=== PATIENT | female | born 1985 | race Caucasian/White ===

== ENCOUNTER 2023-05-15 14:59 | Observation (INO) | payer BC, SELFPAY ==
[2023-05-15] VITALS (14 sets, daily range): BP systolic 121–162; BP diastolic 66–97; PULSE 76–102; RESP 15–21; TEMP 36.2–36.7; O2SAT 94–98; BMI 52.4
--- NOTE | ~2023-05-15 | CT_ITS ---
EXAMINATION: CT abdomen pelvis w con DATE: 05/15/2023 16:33 INDICATION: Lower abdominal pain, nausea, vomiting and fever. TECHNIQUE: Computed tomography (CT) of the abdomen and pelvis was performed with 100 mL Omnipaque-350 intravenous contrast. Automated exposure control and iterative reconstruction technique were employe d. The dose-length product was 1683.27 mGy-cm. COMPARISON: None FINDINGS: Lung bases are clear. Heart size is normal. No pericardial or pleural effusion. Mild diffuse hepatic steatosis. Gallbladder, spleen, pancreas, bilateral kidneys and right adrenal gland are normal. 2.3 c m macroscopic fat attenuation left adrenal adenoma. Bowels including the appendix are normal. Bladder , anteverted uterus and bilateral adnexa are unremarkable. No pathologically enlarged abdominal or pe lvic lymphadenopathy. No free intraperitoneal gas or fluid. Mild lumbar dextrocurvature with mild spo ndylosis. IMPRESSION: 1. No acute intra-abdominal/pelvic process. Specifically normal appendix. 2. 2.3 cm left adrenal myelolipoma. Reviewed, dictated and finalized at location A.
--- NOTE | 2023-05-15 15:31 | ED.GENADULT ---
HPI - General Adult General Chief complaint: Unspecified Stated complaint: mutiple complaints Time Seen by Provider: 05/15/23 15:16 Source: patient Mode of arrival: ambulatory Limitations: no limitations History of Present Illness HPI narrative: Patient is a 38 y/o female, with PMH of insulin dependent Type 2 DM, who presents to the ED with c/o N/V and lower abdominal pain. Patient reports having ongoing nausea and vomiting since last Wednesday, 1 week ago. She was seen at [facility] at that time and had a negative work-up. Patient reports symptoms have continued. She has been unable to keep down any food or drink over the last several days. She complains of pain throughout her lower abdomen. She also reports having persistent fevers, Tmax 104 ?F at home, dysuria. Denies hematuria, diarrhea, constipation, cough or cold symptoms. Patient states her blood sugars have been elevated into the 300 and 400s recently. Related Data Allergies Allergy/AdvReac Type Severity Reaction Status Date / Time venom-honey bee Allergy Unknown Unknown Verified 05/15/23 15:35 Review of Systems Review of Systems: CONSTITUTIONAL: See HPI. CARDIOVASCULAR: Denies chest pain. RESPIRATORY: Denies cough or dyspnea. GASTROINTESTINAL: See HPI. GENITOURINARY: See HPI. SKIN: Denies rash or itching. MUSCULOSKELETAL: Denies back pain, joint pain, or myalgia. All systems reviewed & are unremarkable except as noted in HPI and below Exam Narrative: GENERAL: Mildly ill appearing, morbidly obese with BMI of 53.3, non-toxic, in no acute distress. HEAD: Normocephalic, atraumatic. NECK: Supple. No adenopathy, no masses. RESPIRATORY: Airway patent, respirations nonlabored. Clear to auscultation bilaterally, no rales, rhonchi, wheezing. No focal lung sounds. CARDIOVASCULAR: Regular rate and rhythm without murmurs, rubs, or gallops. Radial pulses 2+ and equal bilaterally. ABDOMINAL: Soft, diffuse tenderness throughout lower abdomen, nondistended, no hepatosplenomegaly. Normoactive BS. MUSCULOSKELETAL: Moves all extremities. Strength/ROM intact without gross deformities. SKIN: Warm, dry, mildly diaphoretic. No rashes. NEURO: A&O X3. Speech clear. Cranial nerves II-XII grossly intact. Steady gait. No ataxic movements. PSYCHIATRIC: Appropriate mood and affect. Normal interaction. Course Vital Signs Vital signs: Vital Signs Temperature 97.1 F L 05/15/23 15:00 Pulse Rate 102 H 05/15/23 15:00 Respiratory Rate 18 05/15/23 15:00 Blood Pressure 149/85 H 05/15/23 15:00 Pulse Oximetry 97 05/15/23 15:00 Oxygen Delivery Room Air 05/15/23 15:00 Temperature 98.1 F 05/15/23 15:30 Pulse Rate 80 05/15/23 17:15 Respiratory Rate 19 05/15/23 17:15 Blood Pressure 145/86 H 05/15/23 17:15 Pulse Oximetry 94 05/15/23 17:15 Oxygen Delivery Room Air 05/15/23 15:00 Medical Decision Making MDM Narrative Medical decision making narrative: Patient presented to ED with fevers, nausea, vomiting, lower abdominal pain. Patient mildly tachycardic upon arrival, otherwise stable. Afebrile. She did report fever earlier today, and took an ice bath for this. Unable to keep down any medications. CBC without leukocytosis, WBC 5.3. CMP with hyponatremia at 124 (corrected to 133 based on BG), chloride low at 92. Stable kidney function. Blood sugar markedly elevated to 659 on CMP. No anion gap. Bicarb within normal limits. ABG without acidosis. No evidence of DKA at this time. Lactic acid within normal limits at 1.3. Minimal transaminitis. Normal lipase. UA with 1+ ketones, trace leuk esterase, 11-20 RBC/WBC, 2+ urine bacteria. Will send for culture and treat. Ceftriaxone given in the ED. Influenza and COVID negative. CT scan of abdomen pelvis essentially negative, shows incidental adrenal finding. No acute process. Patient given 2L of fluid in the ED and repeat BG still > 500. Will given additional fluids, IV insulin, a
[2023-05-15 15:39] LABS: Basophils Percent Auto 0.6 % (0.2-1.2); Eosinophils Percent Auto 0.2 % (0-4.4); Hematocrit 34.2 % (37.0-47.0); Hemoglobin 11.7 g/dL (12.0-15.0); Immature Granulocyte Absolute 0.04 K/mm3 (0.00-0.031); Immature Granulocyte Percent A 0.8 % (0-0.5); Lymphocytes Absolute Auto 0.73 K/mm3 (0.9-3.2); Lymphocytes Percent Auto 13.8 % (18.3-44.2); Mean Corpuscular HGB Conc 34.2 g/dl (32-36); Mean Corpuscular Hemoglobin 27.6 pg (26-34); Mean Corpuscular Volume 80.7 fl (80-100); Mean Platelet Volume 9.7 fl (7.4-10.4); Monocytes Absolute Auto 0.2 K/mm3 (0.1-0.6); Monocytes Percent Auto 3.4 % (2.6-8.5); Neutrophils Absolute Auto 4.3 K/mm3 (1.3-6.7); Neutrophils Percent Auto 81.2 % (45.5-73.1); Platelet Count Result 139 k/mm3 (150-375); Red Blood Count 4.24 M/mm3 (4.2-5.4); Red Cell Distribution Width 14.5 % (11.5-14.5); White Blood Count 5.3 K/mm3 (4.5-10.0)
[2023-05-15 15:42] LABS: Glucose Point of Care > 500 mg/dl (65-105)
[2023-05-15] MEDS: MORPHINE SULFATE (*CRX) 4 MG/ML INJ IV PUSH (15:47)
[2023-05-15] MEDS: ONDANSETRON INJ 4 MG/2 ML VIAL IV PUSH (15:47)
[2023-05-15] MEDS: SODIUM CHLORIDE 0.9% IV 1,000 ML 999 ML IV CONT ×3 (15:49→18:13)
[2023-05-15 15:50] LABS: Lactic Acid Reflex 1.3 mmol/L (0.7-2.0)
[2023-05-15 15:59] LABS: Alanine Aminotransferase 78 U/L (6-35); Albumin Level 3.7 g/dL (3.5-5.1); Alkaline Phosphatase 115 U/L (38-126); Anion Gap 6 mmol/L (8-16); Aspartate Amino Transferase 37 U/L (14-36); Bilirubin,Total 1.3 mg/dL (0.2-1.3); Blood Urea Nitrogen 13 mg/dL (7-17); Calcium 8.7 mg/dL (8.4-10.2); Carbon Dioxide 26 mmol/L (22-30); Chloride 92 mmol/L (98-107); Estimated Glomerular Filt Rate > 60; Glucose 659 mg/dL (65-110); Lipase 105 U/L (23-300); Magnesium 1.8 mg/dL (1.6-2.3); Phosphorus 4.2 mg/dL (2.5-4.5); Potassium 4.4 mmol/L (3.4-5.0); Sodium 124 mmol/L (137-145)
[2023-05-15 16:00] LABS: Alveolar/Arterial O2 Gradient 45.5 mmHg; Base Excess ABG -0.5 mEq/l (+/-2.0); Carboxyhemoglobin 1.6 % THb (0-2.0); Fractional Inspired Oxygen 21 %; HCO3 ABG 23.7 mEq/l (22.0-26.0); Methemoglobin ABG 0.2 %THb (0-1.5); Oxygen Content ABG 15.9 %vol (16.0-22.0); Oxygen Saturation ABG 91.5 % (95.0-100.0); Oxyhemoglobin 88.4 % THb (90.0-100.0); PCO2 ABG 37.3 mmHg (35.0-45.0); PO2 ABG 59.6 mmHg (80.0-100.0); PO2 FiO2 Ratio Arterial Blood 2.84 %; Reduced Hemoglobin 9.8 %THb (0-5.0); Total Hemoglobin 12.8 g/dL (12.0-18.0); pH ABG 7.421 (7.350-7.450)
[2023-05-15 16:01] LABS: Device ROOM AIR; Modified Allen's Test Pass; Site Drawn RIGHT RADIAL
[2023-05-15 16:05] LABS: Appearance Urine Cloudy (Clear); Bacteria Urine 2+ /hpf; Bilirubin Urine Negative (Negative); Blood Urine 2+ (Negative); Color Urine Yellow (Yellow); Glucose Urine UA 3+ mg/dL (Negative); Ketones Urine 1+ mg/dL (Negative); Leukocyte Esterase Ur Trace LEU/UL (Negative); Need Manual Microscopic Reviewed; Nitrate Urine Negative (Negative); Non Pathogenic Casts 0-2; Protein Urine Negative (Negative); Specific Grav Ur 1.033 (1.001-1.035); Squamous Epithelial Cell Urine Occasional /hpf (Few); pH Urine 5.5 (5.0-9.0)
[2023-05-15 16:06] LABS: Add Urine Microscopic? YES
[2023-05-15 16:08] LABS: Beta HCG Quantitative < 2.39 mIU/ML
[2023-05-15 16:49] LABS: Influenza A QL RT-PCR Negative (Negative); Influenza B QL RT-PCR Negative (Negative); SARS-CoV-2 RNA PCR Negative (Negative)
[2023-05-15 16:53] LABS: Hemoglobin A1C 10.3 % (<5.7)
--- NOTE | 2023-05-15 17:24 | PC.NURSE ---
BS 523 per BS glucometer
[2023-05-15 17:25] LABS: Glucose Point of Care > 500 mg/dl (65-105)
[2023-05-15] MEDS: INSULIN HUMAN REGULAR (*BKC) 100 UNITS/ML 10 UNITS IV PUSH (18:13)
[2023-05-15 19:13] LABS: Glucose Point of Care 423 mg/dl (65-105)
--- NOTE | 2023-05-15 19:16 | PC.NURSE ---
Assumed care of pt from DELANO Kang at this time.
--- NOTE | 2023-05-15 20:26 | PCNEURO ---
Addendum entered by Margaux Mccormick RN 05/16/23 03:19: GENERAL ADMISSION NOTE Addendum entered by Margaux Mccormick RN 05/16/23 03:18: General admission note Original Note: This patient, Yulia De La Rosa, was admitted to IMU Room 201-01. Patient/family oriented to hospital policies and general routines including ID bracelet, bed and alarms, visiting hours, pain management, procedures, bathroom and other care routines, personal items, smoking policy, room service/diet, and visiting hours. Information on how to activate the Rapid Response Team has been discussed. Patient/Family are encouraged to report perceived risks to care and to ask questions if they do not understand what they are told or what they should do.
--- NOTE | 2023-05-15 20:34 | PM.IMHP ---
H&P: HPI History of Present Illness Date/Time: 05/15/23 18:30 Chief Complaint: Fevers. Narrative: This is a 38-year-old female with insulin-dependent type 2 diabetes mellitus, hypertension, and hypothyroidism who presented to the emergency department via private vehicle for evaluation of fevers. The patient provides the following history. She has not felt well since last Wednesday with generalized malaise, suprapubic discomfort, nausea, vomiting, sweats, and reported fever up to 104? F. She was previously evaluated at [facility] last Wednesday at which time she reports having a normal workup including negative COVID and influenza testing. Unfortunately she continues to feel unwell and has persistent fevers and sweats. Her appetite has been poor due to ongoing nausea and she continues to have intermittent episodes of emesis which she describes as clear-yellow mucus. Her glucose has been increasing with each day despite not eating much and today was over 500. It should be noted however that she ran out of lispro for her insulin pump yesterday however she did take her usual dose of 15 units of Lantus U 100 last evening. She denies headache, neck ache, sinus congestion, sore throat, cough, epigastric and abdominal pain, GERD symptoms, diarrhea, melena, dysuria, and vaginal discharge. She does not have any open wounds. No recent tattoos. She denies known sick contacts however she does work with the public. In the ED: She was afebrile on arrival with stable blood pressures. Labs were significant for a WBC count of 5.3, hemoglobin 11.7, platelet 139, sodium 124, glucose 659, lactic acid 1.3, AST 37, ALT 78. Urine was cloudy with 3+ glucose, 1+ ketones, 2+ blood, trace leukocyte esterase, 11 to 20 RBC and WBC, 2+ bacteria, and occasional squamous cells. CT of the abdomen and pelvis showed no acute intra-abdominal/pelvic process and a 2.3 cm left adrenal myelolipoma. He tested negative for influenza and COVID. Thus far she has received 3 L of normal saline, 4 mg ondansetron, 10 units IV insulin, and 4 mg of morphine. She is being admitted in this setting for further IV fluid rehydration and treatment of hyperglycemia. Review of Systems Review of Systems: Twelve systems were reviewed and are negative except for as per HPI. [facility] Past Medical History Medical History (Updated 05/15/23 @ 22:07 by Charu Smart PA-C) Hypertension Hypothyroidism Insulin dependent type 2 diabetes mellitus Morbid obesity Surgical History Surgical History (Updated 05/15/23 @ 21:55 by Charu Smart PA-C) No history of previous surgery Family History Family History (Updated 05/15/23 @ 21:55 by Charu Smart PA-C) Other Family history non-contributory Social History Social History (Updated 05/15/23 @ 21:58 by Charu Smart PA-C) Social History: Surrogate medical decision maker: Quynh Pop, mother. Code status: Full code. Smoking status: Never smoker Second hand tobacco smoke exposure: No Alcohol intake: never Substance use: current Substance use type: marijuana and painkillers Other substance usage details: neuropathy Last use: 05/10 Lack of Transportation: No Lack of Food: Often True Current Housing: I Have Housing Concerned About Future Housing: No Difficulty Paying Gas/Electric Bills: YES Difficulty Paying for Meds: YES Currently Unemployed: No Education: High School Diploma/GED Difficulty w/ Childcare or Family Care: No Additional living arrangements comments: Lives alone with her cat. 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 Spiritual care concerns: No Meds Home Medications and Allergies Home Medications Medication Instructions Recorded Confirmed Type albuterol sulfate 90 mcg/actuation 90 inh inhalation DIRECTED 05/15/23 05/15/23 History aerosol inhaler (ProAir HFA) shortness of breath amlodipine 2.5 mg
[2023-05-15 20:42] LABS: Glucose Point of Care 374 mg/dl (65-105)
[2023-05-15 22:09] LABS: Glucose Point of Care 349 mg/dl (65-105)
[2023-05-15 22:20] LABS: Anion Gap 7 mmol/L (8-16); Blood Urea Nitrogen 11 mg/dL (7-17); Carbon Dioxide 25 mmol/L (22-30); Chloride 100 mmol/L (98-107); Estimated CRCL calculation 185 ml/min; Estimated Glomerular Filt Rate > 60; Glucose 366 mg/dL (65-110); Potassium 4.3 mmol/L (3.4-5.0); Sodium 132 mmol/L (137-145)
[2023-05-15] MEDS: INSULIN GLARGINE (*BKC) 100 UNITS/ML 40 UNITS SUB-Q (23:00)
[2023-05-15] MEDS: LACTATED RINGERS 1,000 ML 100 ML IV CONT (23:06)
[2023-05-16] VITALS (11 sets, daily range): BP systolic 130–155; BP diastolic 73–89; PULSE 71–86; RESP 12–24; TEMP 35.7–36.9; O2SAT 96–98
--- NOTE | 2023-05-16 01:40 | PC.NURSE ---
Daylight Savings Time For Daylight Savings Time Ending in the Fall - Clocks are moved back. For Daylight Savings Time Beginning in the Spring - Clocks are moved ahead. For [facility], the time of change occurs at 0200 hrs. Time is taken from the soil technologist. This entry on the patient's chart recognizes the change in time reflected during documentation. Example: 2 entries for vital signs may be charted for 0200 hrs.
[2023-05-16] MEDS: ACETAMINOPHEN 500 MG TABLET 1000 MG PO (04:58)
[2023-05-16] MEDS: LEVOTHYROXINE SODIUM 50 MCG TABLET BY MOUTH (05:30)
[2023-05-16 05:35] LABS: Hematocrit 31.1 % (37.0-47.0); Hemoglobin 10.2 g/dL (12.0-15.0); Mean Corpuscular HGB Conc 32.8 g/dl (32-36); Mean Corpuscular Hemoglobin 27.4 pg (26-34); Mean Corpuscular Volume 83.6 fl (80-100); Mean Platelet Volume 9.4 fl (7.4-10.4); Platelet Count Result 134 k/mm3 (150-375); Red Blood Count 3.72 M/mm3 (4.2-5.4); Red Cell Distribution Width 14.7 % (11.5-14.5); White Blood Count 4.9 K/mm3 (4.5-10.0)
[2023-05-16 05:44] LABS: Alanine Aminotransferase 67 U/L (6-35); Albumin Level 3.1 g/dL (3.5-5.1); Alkaline Phosphatase 86 U/L (38-126); Anion Gap 5 mmol/L (8-16); Aspartate Amino Transferase 39 U/L (14-36); Bilirubin,Total 0.8 mg/dL (0.2-1.3); Blood Urea Nitrogen 10 mg/dL (7-17); Carbon Dioxide 28 mmol/L (22-30); Chloride 102 mmol/L (98-107); Estimated CRCL calculation 185 ml/min; Estimated Glomerular Filt Rate > 60; Glucose 278 mg/dL (65-110); Magnesium 2.1 mg/dL (1.6-2.3); Potassium 3.6 mmol/L (3.4-5.0); Sodium 135 mmol/L (137-145)
[2023-05-16] MEDS: amLODIPine BESYLATE 2.5 MG TABLET PO (08:25)
[2023-05-16] MEDS: INSULIN ASPART (*BKC) 100 UNITS/ML SUB-Q ×4 (08:26→21:22)
[2023-05-16] MEDS: INSULIN GLARGINE (*BKC) 100 UNITS/ML 40 UNITS SUB-Q ×2 (08:26→16:49)
[2023-05-16 08:39] LABS: Glucose Point of Care 258 mg/dl (65-105)
--- NOTE | 2023-05-16 10:48 | PM.IMPN ---
Progress Note: A&P Assessment and Plan (1) Hyperglycemia due to type 2 diabetes mellitus: Qualifiers: Diabetes mellitus buttermilk drier operator insulin use: with buttermilk drier operator use Qualified Code(s): E11.65 - Type 2 diabetes mellitus with hyperglycemia; Z79.4 - detention (current) use of insulin Code(s): E11.65 - Type 2 diabetes mellitus with hyperglycemia Status: Acute Assessment and Plan: Glucose has been increasing the last several days and she ran out of her lispro yesterday. Random glucose on arrival was 659. Patient is unsure how much basal insulin she receives a day with her insulin pump and it is not here with her. She was previously on 40 units of Lantus b.i.d. prior to getting the insulin pump 6 months ago Hold metformin as she received IV contrast. Initiate sliding scale insulin, Accu-Cheks, and hypoglycemic protocol. 05/15: A1c 10.3 (2) Dehydration: Code(s): E86.0 - Dehydration Status: Acute Assessment and Plan: Patient is dry due to poor oral intake, vomiting, and insensible losses. She received 3 L normal saline in the ED. (3) Nausea and vomiting: Qualifiers: Vomiting type: unspecified Qualified Code(s): R11.2 - Nausea with vomiting, unspecified Code(s): R11.2 - Nausea with vomiting, unspecified Status: Acute Assessment and Plan: Patient endorses ongoing nausea and vomiting. CT abdomen/pelvis showed no findings to correlate with her symptoms. Continue supportive care with IV fluids and antiemetics as needed. (4) Fever: Code(s): R50.9 - Fever, unspecified Status: Acute Assessment and Plan: Patient reports an ongoing fever for the past 1 week with a T-max of 105? F. Possible underlying UTI. COVID and flu negative. Continue empiric ceftriaxone started 05/15 Blood and urine cultures are pending. (5) Pseudohyponatremia: Code(s): R79.89 - Other specified abnormal findings of blood chemistry Status: Acute Assessment and Plan: Improving as glucose improves (6) Abnormal urinalysis: Code(s): R82.90 - Unspecified abnormal findings in urine Status: Acute Assessment and Plan: UA is positive for trace leukocyte esterase, 11 to 20 WBC, and 2+ bacteria the though some squamous cells seen. Continue ceftriaxone given suprapubic discomfort. Urine culture has been obtained and is pending. (7) Hypertension: Code(s): I10 - Essential (primary) hypertension Status: Acute Assessment and Plan: Blood pressures were reviewed 05/16 Continue amlodipine 2.5 mg daily. Monitor blood pressures closely. (8) Hypothyroidism: Code(s): E03.9 - Hypothyroidism, unspecified Status: Acute Assessment and Plan: Continue levothyroxine, TSH wnl Plan DVT prophylaxis with SCDs GI prophylaxis not indicated Code status full code Subjective Date/time seen: 05/16/23 10:48 Interval history: 38-year-old female with insulin-dependent type 2 diabetes mellitus, hypertension, and hypothyroidism who presented to the emergency department via private vehicle for evaluation of fevers and is currently being treated for hyperglycemia. No overnight events noted. No chest pain or shortness of breath. No nausea, vomiting or diarrhea. No fevers or chills since arriving to the hospital. States she feels much better, still with some suprapubic pain and flank pain. Review of Systems Review of Systems: 12 point review of systems was assessed and was negative except as noted in the HPI Exam Narrative: General: No acute distress, alert and oriented per baseline HEENT: Atraumatic, normocephalic, mucous membranes moist CV: Regular rate and rhythm, S1, S2 Lungs: Clear to auscultation bilaterally, no rales or crackles noted, no wheezes, good air entry Abdomen: Soft, nontender, nondistended Extremities: Normal to inspection Skin: No rashes noted, no lesions or wound
[2023-05-16 12:19] LABS: Glucose Point of Care 327 mg/dl (65-105)
[2023-05-16] MEDS: ACETAMINOPHEN 325 MG TABLET 650 MG PO (15:55)
[2023-05-16 16:28] LABS: Glucose Point of Care 395 mg/dl (65-105)
--- NOTE | 2023-05-16 17:01 | PC.NURSE ---
This patient, Yulia De La Rosa, was received from imu on 05/16/23 at 1701. Patient/family oriented to unit policies and routines
[2023-05-16] MEDS: KETOROLAC 30 MG/ML VIAL (*BKC) IV PUSH (18:19)
--- NOTE | 2023-05-16 19:08 | PC.NURSE ---
pATIENT C/O RIGHT EYE SWELLING AND HAS FLUSHED FACE AFTER IV ROCEPHIN AND IV TORADOL. LJ GARSIA NOTIFIED NEW FOR NEW ORDERS
[2023-05-16] MEDS: diphenhydrAMINE HCl INJ 50 MG/ML VIAL 25 MG IV PUSH (19:16)
[2023-05-16 21:00] LABS: Glucose Point of Care 308 mg/dl (65-105)
[2023-05-17] MEDS: methylPREDNISolone SOD SUCC 125 MG VIAL IV PUSH (00:37)
[2023-05-17] MEDS: diphenhydrAMINE HCl INJ 50 MG/ML VIAL 25 MG IV PUSH (00:37)
[2023-05-17 00:51] VITALS: BP 154/92; PULSE 73; RESP 22; TEMP 36.2; O2SAT 100
[2023-05-17] MEDS: ONDANSETRON INJ 4 MG/2 ML VIAL IV PUSH (04:15)
[2023-05-17 06:00] VITALS: BP 111/88; PULSE 78; RESP 14; TEMP 35.9; O2SAT 98
[2023-05-17] MEDS: LEVOTHYROXINE SODIUM 50 MCG TABLET BY MOUTH (06:08)
[2023-05-17 06:55] LABS: Basophils Percent Auto 0.2 % (0.2-1.2); Eosinophils Percent Auto 0.2 % (0-4.4); Hematocrit 35.4 % (37.0-47.0); Hemoglobin 11.9 g/dL (12.0-15.0); Immature Granulocyte Absolute 0.08 K/mm3 (0.00-0.031); Immature Granulocyte Percent A 1.6 % (0-0.5); Lymphocytes Absolute Auto 0.79 K/mm3 (0.9-3.2); Lymphocytes Percent Auto 16.3 % (18.3-44.2); Mean Corpuscular HGB Conc 33.6 g/dl (32-36); Mean Corpuscular Volume 83.3 fl (80-100); Mean Platelet Volume 9.7 fl (7.4-10.4); Monocytes Absolute Auto 0.1 K/mm3 (0.1-0.6); Monocytes Percent Auto 2.1 % (2.6-8.5); Neutrophils Absolute Auto 3.9 K/mm3 (1.3-6.7); Neutrophils Percent Auto 79.6 % (45.5-73.1); Platelet Count Result 173 k/mm3 (150-375); Red Blood Count 4.25 M/mm3 (4.2-5.4); Red Cell Distribution Width 14.7 % (11.5-14.5); White Blood Count 4.9 K/mm3 (4.5-10.0)
[2023-05-17 07:11] LABS: Alanine Aminotransferase 78 U/L (6-35); Albumin Level 3.6 g/dL (3.5-5.1); Alkaline Phosphatase 98 U/L (38-126); Anion Gap 9 mmol/L (8-16); Aspartate Amino Transferase 33 U/L (14-36); Blood Urea Nitrogen 13 mg/dL (7-17); Calcium 8.4 mg/dL (8.4-10.2); Carbon Dioxide 25 mmol/L (22-30); Chloride 99 mmol/L (98-107); Estimated CRCL calculation 185 ml/min; Estimated Glomerular Filt Rate > 60; Glucose 376 mg/dL (65-110); Potassium 4.3 mmol/L (3.4-5.0); Sodium 133 mmol/L (137-145)
[2023-05-17 07:28] LABS: Glucose Point of Care 376 mg/dl (65-105)
[2023-05-17 08:00] VITALS: PULSE 78; RESP 14; O2SAT 98
[2023-05-17] MEDS: amLODIPine BESYLATE 2.5 MG TABLET PO (08:52)
[2023-05-17] MEDS: INSULIN ASPART (*BKC) 100 UNITS/ML SUB-Q (08:52)
[2023-05-17] MEDS: ERGOCALCIFEROL 50,000 UNITS CAPSULE 50000 UNITS BY MOUTH (08:52)
[2023-05-17] MEDS: INSULIN GLARGINE (*BKC) 100 UNITS/ML 40 UNITS SUB-Q (08:52)
--- NOTE | 2023-05-17 09:01 | PM.DS ---
DS: Admitting Diagnosis Discharge Date 05/17/23 Admitting Diagnosis fevers DS: Discharge Diagnosis Discharge Diagnosis (1) Hyperglycemia due to type 2 diabetes mellitus: Qualifiers: Diabetes mellitus terminal gauger insulin use: with fpc use Qualified Code(s): E11.65 - Type 2 diabetes mellitus with hyperglycemia; Z79.4 - shelter (current) use of insulin Code(s): E11.65 - Type 2 diabetes mellitus with hyperglycemia Status: Acute Assessment and Plan: Glucose has been increasing the last several days and she ran out of her lispro yesterday. Random glucose on arrival was 659. Patient is unsure how much basal insulin she receives a day with her insulin pump and it is not here with her. She was previously on 40 units of Lantus b.i.d. prior to getting the insulin pump 6 months ago Hold metformin as she received IV contrast. Initiate sliding scale insulin, Accu-Cheks, and hypoglycemic protocol. 05/15: A1c 10.3 (2) Dehydration: Code(s): E86.0 - Dehydration Status: Acute Assessment and Plan: Patient is dry due to poor oral intake, vomiting, and insensible losses. She received 3 L normal saline in the ED. (3) Nausea and vomiting: Qualifiers: Vomiting type: unspecified Qualified Code(s): R11.2 - Nausea with vomiting, unspecified Code(s): R11.2 - Nausea with vomiting, unspecified Status: Acute Assessment and Plan: Patient endorses ongoing nausea and vomiting. CT abdomen/pelvis showed no findings to correlate with her symptoms. Continue supportive care with IV fluids and antiemetics as needed. (4) Fever: Code(s): R50.9 - Fever, unspecified Status: Acute Assessment and Plan: Patient reports an ongoing fever for the past 1 week with a T-max of 105? F. Possible underlying UTI. COVID and flu negative. Continue empiric ceftriaxone started 05/15 Blood and urine cultures are pending. (5) Pseudohyponatremia: Code(s): R79.89 - Other specified abnormal findings of blood chemistry Status: Acute Assessment and Plan: Improving as glucose improves (6) Abnormal urinalysis: Code(s): R82.90 - Unspecified abnormal findings in urine Status: Acute Assessment and Plan: UA is positive for trace leukocyte esterase, 11 to 20 WBC, and 2+ bacteria the though some squamous cells seen. Continue ceftriaxone given suprapubic discomfort. Urine culture has been obtained and is pending. (7) Hypertension: Code(s): I10 - Essential (primary) hypertension Status: Acute Assessment and Plan: Blood pressures were reviewed 05/16 Continue amlodipine 2.5 mg daily. Monitor blood pressures closely. (8) Hypothyroidism: Code(s): E03.9 - Hypothyroidism, unspecified Status: Acute Assessment and Plan: Continue levothyroxine, TSH wnl Plan DVT prophylaxis with SCDs GI prophylaxis not indicated Code status full code DS: Summary Hospital Course Hospital Course: 38-year-old female with insulin-dependent type 2 diabetes mellitus, hypertension, and hypothyroidism who presented to the emergency department via private vehicle for evaluation of fevers and is currently being treated for hyperglycemia. Glucose has been increasing the last several days and she ran out of her lispro yesterday. Random glucose on arrival was 659. Patient is unsure how much basal insulin she receives a day with her insulin pump and it is not here with her. She was previously on 40 units of Lantus b.i.d. prior to getting the insulin pump 6 months ago Hold metformin as she received IV contrast. Initiate sliding scale insulin, Accu-Cheks, and hypoglycemic protocol. All symptoms resolved, she was discharged in stable condition with close outpatient follow-up by endocrinology and restarted on her insulin pump. Please see above and med rec for details. Time Spent with Patient Time attestation: Total tyesha
== END 2023-05-17 10:19 | disposition home or self-care (01) ==
LOC: ANHED 18:09 → ANHIMU 19:45 → ANH3MEDSUR 05-16 16:48
PROVIDERS: Physician Assistant; Admitting Provider Student in an Organized Health Care Education/Training Program; Emergency Provider Physician Assistant; Visit Provider Student in an Organized Health Care Education/Training Program
DX: E11.65 Type 2 diabetes mellitus with hyperglycemia (principal); Z96.41 Presence of insulin pump (external) (internal); E86.0 Dehydration; R82.90 Unspecified abnormal findings in urine; R00.0 Tachycardia, unspecified; R79.89 Other specified abnormal findings of blood chemistry; R50.9 Fever, unspecified; R11.2 Nausea with vomiting, unspecified; Z20.822 Contact with and (suspected) exposure to COVID-19; E87.1 Hypo-osmolality and hyponatremia; I10 Essential (primary) hypertension; R06.02 Shortness of breath; E03.9 Hypothyroidism, unspecified; D17.79 Benign lipomatous neoplasm of other sites; E66.01 Morbid (severe) obesity due to excess calories; Z68.43 Body mass index [BMI] 50.0-59.9, adult; Z79.4 Long term (current) use of insulin; Z79.1 Long term (current) use of non-steroidal anti-inflammatories (NSAID); Z79.51 Long term (current) use of inhaled steroids; Z79.84 Long term (current) use of oral hypoglycemic drugs; Z79.899 Other long term (current) drug therapy
CPT/HCPCS: 36415; 36600; 74177; 80048; 80053; 81001; 81025; 82375; 82805; 82948; 83036; 83050; 83605; 83690; 83735; 84100; 84443; 84702; 85025; 85027; 87040; 87086; 87088; 87636; 96361; 96365; 96374; 96375; 99285; A9270; G0378; G0379; J0696; J1200; J1815; J1885; J2270; J2405; J2930; J7030; J7120; Q9967